=== PATIENT | female | born 2000 | race Caucasian/White ===

== ENCOUNTER 2021-03-29 18:01 | Outpatient (CLI) | payer MEDICAID ==
[~2021-03-29] VITALS: Ht 172.7 cm; Wt 93.2 kg
[2021-03-29 19:10] VITALS: BP 115/59; PULSE 68; TEMP 98.3
--- NOTE | 2021-03-29 19:26 | NUR ---
183- PT ARRIVES TO OB UNIT FROM ED VIA W/C, ACCOMPANIED BY SIGNIFICANT OTHER, BUNNY. PT C/O RT SIDED FLANK PAIN THAT HAS LASTED THE LAST 4-5 DAYS. PT REPORTS SHE WENT TO URGENT CARE TODAY FOR SYMPTOMS AND WAS TOLD SHE DOES NOT HAVE A UTI. PT REPORTS SHE IS CURRENTLY TAKING CEFDINIR 300 MG BID. PT STATES SHE JUST MOVED HERE FROM [place] ABOUT 1 MONTH AGO AND WAS SEEING AN OB THERE. PT IS A POOR HISTORIAN. SIG. OTHER IS PRESENT BUT NOT FOB. VSS. PT REPORTS +FM, DENIES ANY LOF, VB OR CTX.
[2021-03-29 20:30] VITALS: BP 114/71; PULSE 71
--- NOTE | 2021-03-29 20:30 | NUR ---
2014- POC D/W PT AND PT VERBALIZES UNDERSTANDING AND AGREES. RT AC #18 IV X1 ATTEMPT, SUCCESSFUL. LABS DRAWN WITH IV START. PT TOLERATED WELL. DRSG APPLIED. 2019- STRAIGHT CATH'D USING STERILE TECHNIQUE. PT TOLERATED WELL W/O ANY DIFFICULTIES. CLEAR, YELLOW URINE NOTED IN TUBE. 2029- PT REQUESTING A SNACK. SANDWICH AND SPIRITE PROVIDED TO PT. PT REPORTS SHE HAS HAD A LOSS OF APPETITE SINCE BEING PREGNANCT AND ONLY EATS ABOUT ONCE A DAY. ENCOURAGED THE PT TO EAT SMALL, FREQUENT SNACKS OR FOODS THAT ARE HIGH IN PROTEIN.
[2021-03-29 20:35] LABS: COLLECTION METHOD CLEAN CATCH
[2021-03-29 20:39] LABS: BASO # 0.1 K/mm3 (0.0-0.2); BASO % 0.4 % (0.0-2.0); EOS # 0.1 K/mm3 (0.0-0.7); EOS % 0.7 % (0.0-4.0); GRAN # 10.3 K/mm3 (1.4-6.5); GRAN % 77.8 % (42.2-75.2); HEMOGLOBIN 10.1 g/dl (12.0-15.0); LYMPH # 1.8 K/mm3 (1.2-3.4); LYMPH % 13.8 % (20.0-51.0); MEAN CELL VOLUME 80 fl (80.0-95.0); MEAN CORPUSCULAR HEMOGLOBIN 25 pg (26-32); MEAN CORPUSCULAR HGB CONC 32 g/dl (33.0-37.0); MEAN PLATELET VOLUME 11.4 fl (7.4-10.4); MONO # 0.8 K/mm3 (0.1-0.6); MONO % 5.9 % (1.7-9.3); PLATELET COUNT 292 K/mm3 (130-400); RED BLOOD COUNT 3.98 M/mm3 (4.10-5.30); REDCELL DISTRIBUTION WIDTH-CV 15.2 % (11.5-14.5)
[2021-03-29 20:40] LABS: HEMATOCRIT 31.7 % (35.0-45.0)
[2021-03-29 20:52] LABS: MUCOUS Present (NOT PRESENT); PH 5 (5-8); SQUAMOUS EPITHELIAL 0-2 /hpf (0-10); URINE APPEARANCE Clear (CLEAR/HAZY); URINE BACTERIA Rare /hpf (NONE SEEN); URINE BILIRUBIN Negative (NEGATIVE); URINE BLOOD Negative (NEGATIVE); URINE COLOR Amber (YELLOW); URINE GLUCOSE Negative (NEGATIVE); URINE KETONE Negative (NEGATIVE); URINE LEUKOCYTE ESTERASE Negative (NEGATIVE); URINE NITRATE Negative (NEGATIVE); URINE PROTEIN(semi-quant) Negative (NEGATIVE); URINE RBC 0-2 /hpf (0-2); URINE UROBILINOGEN >=4.0 (NEGATIVE)
--- NOTE | 2021-03-29 21:00 | NUR ---
2039- SOME TYPE OF DECELERATION NOTED AT THIS TIME FOR ABOUT 50 SECONDS. POSITION CHANGE. PT ATE ALL OF FOOD W/O ANY C/O NAUSEA. PT REPORTS PAIN IS BETTER AT THE MOMENT BUT COMES AND GOES.
[2021-03-29 21:10] LABS: HIV 1/2 Antibodies Non-Reactive; HIV-1p24 Antigen Non-Reactive
--- NOTE | 2021-03-29 21:40 | NUR ---
2135- IV DC'D. 2139- DC INSTRUCTIONS REVIEWED WITH PT. ALL QUESTIONS ANSWERED. PT AMBULATES OFF UNIT WITH SIG. OTHER.
[2021-03-30 16:06] LABS: HEPATITIS B SURFACE ANTIGEN Negative (Negative)
== END 2021-03-29 21:40 | disposition home or self-care (01) ==
LOC: COL.ER 18:01 → LDRO 18:01 → EDSTATUS 18:39 → LDRO 21:40
PROVIDERS: Obstetrics & Gynecology; Physician Assistant
DX: O26.899 Other specified pregnancy related conditions, unspecified trimester (principal); R10.2 Pelvic and perineal pain; Z3A.00 Weeks of gestation of pregnancy not specified

== ENCOUNTER 2021-04-18 16:55 | Outpatient (CLI) | payer MEDICAID ==
[~2021-04-18] VITALS: Ht 172.7 cm; Wt 93.6 kg
[2021-04-18] VITALS (7 sets, daily range): BP systolic 122–137; BP diastolic 72–87; PULSE 7–72; TEMP 98
--- NOTE | 2021-04-18 17:05 | NUR ---
[id number]/[id number]/0, G1L0 arrives on unit with c/o decreased movement, and ctx every 3-6min. Ambulatory to LDR6. Denies any LOF or VB. Changes into clean gown. [id number] explained and placed. Assessment completed. VS obtained. [id number] /-2, DUSTIN. 1725Dr. Pro on unit and updated on pt. See physician notification. Plan of care reviewed with pt who verbalize understanding.
[2021-04-18 19:37] LABS: TRICYCLIC ANTIDEPRESS URINE NEGATIVE
== END 2021-04-18 21:00 | disposition home or self-care (01) ==
LOC: LDRO 16:55
PROVIDERS: Obstetrics & Gynecology
DX: Z34.90 Encounter for supervision of normal pregnancy, unspecified, unspecified trimester (principal); Z3A.00 Weeks of gestation of pregnancy not specified

== ENCOUNTER 2021-04-18 23:07 | Inpatient (IN) | payer MEDICAID ==
[~2021-04-18] VITALS: Ht 172.7 cm; Wt 93.2 kg
--- NOTE | 2021-04-18 23:15 | NUR ---
2315- PATIENT ON UNIT VIA EMS. PATIENT HELPED INTO BED. EMS STATED CONTRACTIONS WERE ABOUT 1.5-3 MINUTES APART AND AVERAGING ABOUT 60 SECONDS. NO URGE TO PUSH, WATER INTACT FAR THEY KNOW. PATIENT IS A WITH NO ASSUMED CARE AT ROUGHLY 38.5 BY LAST PERIOD. PATIENT CAME WITH 20G IV IN HER LEFT WRIST PLACED THERE BY EMS. 2320- EFM AND TOCO ON AND TRACING. VITALS TAKEN, ASSESSMENT COMPLETED. SVE /0. 2322- PROVIDER NOTIFIED, SEE PHYSICIAN NOTIFICATION. 2330- LACTACTED RINGERS STARTED IN IV AND RUNNING. 233- ANESTHESIA NOTIFIED OF PATIENT REQUESTING EPIDURAL. HE STATED HE WAS ON HIS WAY. 2342- PATIENT SHOWING SIGNS OF INCREASING PAIN AND UNABLE TO STOP MOVING. THIS RN ASKED ABOUT SVE CHECK AND PATIENT AGREED. SVE -/0. 2350- ARLEEN PUGA IN THE ROOM FOR EPIDURAL PLACEMENT 2355- TEST DOSE, SEE ANESTHESIA RECORD. 0000- NOW THAT PATIENT IS COMFORTABLE AND ABLE TO SPEAK, THIS RN WENT OVER CONSENTS WITH THE PATIENT. THIS RN REMAINS AT BEDSIDE AT THIS TIME. 0007- FHR NOTED TO DROP DOWN TO THE 80S. PATIENT PLACED IN LEFT LATERAL POSITION. 0008- MAYURI MEYERS AT BEDSIDE TO ASSIST. FLUIDS BOLUSING IN, 02 TURNED ON AND PLACED ON PATIENT. 0009- PATIENT ASSISTED INTO RIGHT LATERAL POSITION. FHR TRACING INTERMITTENTLY AND IN THE 80S. 0010- SROM, CLEAR FLUID. SVE COMPLETE. PATIENT IN WL POSITION AT THIS TIME. 0011- Anthony FRANKLIN RN AT BEDSIDE TO ASSIST IN PLACING PATIENT IN HANDS AND KNEES. 0012- PATIENT IN HANDS IN KNEES POSITION. FHR UNABLE TO TRACE AT THIS TIME. THIS RN CONTINUES TO TRY TO TRACE, BUT TRACING INTERMITTENTLY DUE TO MATERNAL POSITION. 0014- DR. MARTIN NOTIFIED OF FHT. PROVIDER IN THE INTERVENTION SPECIALIST ROOM AND STATED HE WAS ON HIS WAY OVER. 0016- PATIENT ASSISTED INTO WEDGE LEFT POSITION. FHR IN THE 90S. FSE PLACED AT THIS TIME BY THIS RN. FHR TRACING IN THE 90S AND CLIMBING. 0017- DR. MARTIN AT BEDSIDE. PROVIDER DISCUSSED PLAN OF CARE AND WHAT TO EXPECT WITH DELIVERY. NURSERY NURSE IN THE ROOM WELL. 0023- BED BROKEN DOWN FOR DELIVERY AND PATIENT PREPPED. 0024- FIRST PUSH WITH PROVIDER. FHR IN THE 90S-100S AFTER PUSHING. PROVIDER DISCUSSES VAVD WITH PATIENT AND PATIENT CONSENTS VERBALLY. 0026- VACUUMN APPLIED BY PROVIDER. PATIENT PUSHING. 0027- FIRST BREA OFF. VACUUMN REAPPLIED. PATIENT BEGINS PUSHING AGAIN. 0029- VAVD OF VIABLE FEMALE . INFANT CORD CLAMPED AND CUT. NURSERY NURSE ASSUMES CARE AT THIS TIME AND TAKES TO NURSERY PER PATIENT REQUEST. 0034- OF PLACENTA. FUNDUS MASSAGED TO FIRM BY PROVIDER. PITOCIN TURNED ON PER PROTOCOL AT 333ML/HR. PROVIDER NOTED A 2ND DEGREE TEAR AND REPAIRED THIS. PROVIDER NOTED AT THE END OF REPAIR, THAT EBL WAS 400. 0050- VITALS STABLE, FUNDUS FIRM WITH SMALL AMOUNT OF LOCHIA NOTED. PATIENT AND ROOM CLEANED UP AND PUT BACK TOGETHER. NEW CHUX PAD, PERIPAD AND ICEPACK TO PERINEUM. RECOVERY STARTED.
[2021-04-18 23:30] VITALS: BP 132/87; PULSE 68; TEMP 97.6
[2021-04-18 23:38] LABS: MEAN CELL VOLUME 78 fl (80.0-95.0); MEAN CORPUSCULAR HEMOGLOBIN 26 pg (26-32); MEAN CORPUSCULAR HGB CONC 33 g/dl (33.0-37.0); PLATELET COUNT 295 K/mm3 (130-400); RED BLOOD COUNT 4.32 M/mm3 (4.10-5.30); REDCELL DISTRIBUTION WIDTH-CV 15.8 % (11.5-14.5)
[2021-04-18 23:45] LABS: HEMATOCRIT 33.8 % (35.0-45.0)
[2021-04-19] VITALS (12 sets, daily range): BP systolic 117–136; BP diastolic 57–81; PULSE 45–84; TEMP 97.4–98.2
[2021-04-19 00:21] LABS: LYMPHOCYTE 4 % (20.0-51.0); NEUTROPHILS 93 % (42.0-75.2); PLATELET ESTIMATE NORMAL (NORMAL)
[2021-04-19 00:22] LABS: ANISOCYTOSIS 1+; HYPOCHROMIA 1+; MICROCYTOSIS 1+
[2021-04-19 07:29] LABS: HEMATOCRIT 26.7 % (35.0-45.0); HEMOGLOBIN 8.7 g/dl (12.0-15.0)
--- NOTE | 2021-04-19 14:19 | NUR ---
decontamination worker met with patient and her boyfriend and confirmed that patient wishes to adopt her baby. Worker provided resource options for adoption and patient chose to utilize [employer] and connect patient to [employer]. Awaiting power of workers compensation defense attorney paperwork for patient to sign.
--- NOTE | 2021-04-19 16:11 | NUR ---
gaming cage worker, ayah and patient's nurse met with patient and father of the baby. Jong Senior, assistant county attorney, was on the phone and patient signed adoption paperwork. Worker made a copy and placed on infant's chart. Original copies of adoption paperwork will be picked up by Jong Senior on 04/20/2021. Patient denied further questions. A taxi voucher was prepared for patient and boyfriend to return home this date. Power of assistant county attorney for was signed, among the legal documents and nursing staff is aware of adoptive parents names and phone numbers.
--- NOTE | 2021-04-19 16:15 | NUR ---
Discharge instructions and follow up care reviewed with pt and boyfriend at the bedside. Both verbalized an understanding, agreed with the plan and states no questions or concerns at this time.
== END 2021-04-19 16:30 | disposition home or self-care (01) | DRG 807 ==
LOC: LDRO 23:07 → OB 23:26 → LDR 23:26 → OB 04-19 05:00
PROVIDERS: ADMIT Obstetrics & Gynecology
PROC: 10D07Z6 Extraction of Products of Conception, Vacuum, Via Natural or Artificial Opening (ICD-10-PCS; principal; 2021-04-19)
PROC: 0KQM0ZZ Repair Perineum Muscle, Open Approach (ICD-10-PCS; 2021-04-19)
PROC: 0UQGXZZ Repair Vagina, External Approach (ICD-10-PCS; 2021-04-19)
DX: O99.344 Other mental disorders complicating childbirth (principal); Z37.0 Single live birth; F32.A Depression, unspecified; O76 Abnormality in fetal heart rate and rhythm complicating labor and delivery; O90.81 Anemia of the puerperium; D64.9 Anemia, unspecified; O70.1 Second degree perineal laceration during delivery; Z3A.38 38 weeks gestation of pregnancy
CPT/HCPCS: J2540; J2590; J7120

== ENCOUNTER 2021-10-23 16:06 | Emergency (ER) | payer MEDICAID ==
[~2021-10-23] VITALS: Ht 175.3 cm; Wt 104.5 kg
[2021-10-23 16:16] VITALS: TEMP 98.1
[2021-10-23 16:42] LABS: COLLECTION METHOD CLEAN CATCH
[2021-10-23 16:51] LABS: URINE APPEARANCE Clear (CLEAR/HAZY); URINE BLOOD TRACE-INTACT (NEGATIVE); URINE COLOR Yellow (YELLOW); URINE GLUCOSE Negative (NEGATIVE); URINE KETONE Negative (NEGATIVE); URINE NITRATE Negative (NEGATIVE); URINE PROTEIN(semi-quant) Negative (NEGATIVE)
[2021-10-23 16:54] LABS: MUCOUS Present (NOT PRESENT); SQUAMOUS EPITHELIAL 0-2 /hpf (0-10); URINE BACTERIA None Seen /hpf (NONE SEEN)
[2021-10-23 18:06] VITALS: BP 131/74; PULSE 76
== END 2021-10-23 18:06 | disposition home or self-care (01) ==
LOC: COL.ER 16:06
PROVIDERS: Emergency Medicine
DX: J06.9 Acute upper respiratory infection, unspecified (principal); M79.18 Myalgia, other site; Z28.310 Unvaccinated for COVID-19; Z20.822 Contact with and (suspected) exposure to COVID-19